=== PATIENT | male | born 1975 | race Hispanic/Latino ===

== ENCOUNTER 2022-03-07 12:35 | Emergency (ER) | payer OTHER ==
[2022-03-07] MEDS ORDERED: ONDANSETRON 4 MG/2 ML VIAL ONE (12:47)
[2022-03-07] MEDS ORDERED: NA CHLORIDE 0.9% 1,000 ML ONE (12:47)
[2022-03-07 12:50] LABS: Absolute Lymphocytes (CBC) 1.3 K/uL (0.7-4.9); Hematocrit 49.8 % (39.6-49.0); Lymphocytes % 5.9 % (15.3-44.8); MPV 8.1 fL (7.6-11.3); RBC Red Blood Cell Count 5.77 M/uL (4.33-5.43)
[2022-03-07] MEDS ORDERED: DIPHENHYDRAMINE 50 MG/ML VIAL ONE (12:52)
[2022-03-07 13:06] LABS: Albumin 4.3 g/dL (3.4-5.0); Bilirubin Total 0.8 mg/dL (0.2-1.0); Potassium 3.7 mmol/L (3.5-5.1); Protein, Total 8.5 g/dL (6.4-8.2)
[2022-03-07 13:35] LABS: Blood Gas Oxyhemoglobin 81.4 % (94-97); Blood O2 Saturation 83.2 % (92-98.5)
[2022-03-07] MEDS ORDERED: Ringers Lactate 3,000 ML IV ONE (13:45)
[2022-03-07 14:03] LABS: Blood Morphology Comment NOT SEEN (NOT SEEN); Platelet Estimate ADEQ
[2022-03-07] MEDS ORDERED: INSULIN -REGULAR HUMAN 50 UNIT/0.5 ML ML ONE (14:52)
--- NOTE | 2022-03-07 15:05 | RAD REPORT ---
EXAM DESCRIPTION: CT - Soft Tissue Neck W/Contr CLINICAL HISTORY: Swallowed foreign body Neck pain, swelling COMPARISON: No comparisons TECHNIQUE All CT scans are performed using dose optimization technique as appropriate and may includ e automated exposure control or mA/KV adjustment according to patient size. FINDINGS: Nasopharyngeal tissues are normal in appearance. Fossa Rosenmller are normal. Parapharyngeal fat triangles are symmetric. Tongue base structures are normal. Epiglottis and aryepiglottic folds are normal. Piriform sinuses are well aerated. The vocal cords are normal in appearance. Salivary glands are normal in appearance. Upper lung gonzalez are clear. Included intracranial contents are unremarkable. IMPRESSION: No acute abnormality is seen.
[2022-03-07 18:12] LABS: Potassium 3.9 mmol/L (3.5-5.1)
--- NOTE | 2022-03-07 19:02 | ER ---
Nurse's Notes [facility] Name: Estrada Sanchez Age: 46 yrs Sex: Male : 1975 Arrival Date: 03/07/2022 Time: 12:36 Bed 3 Private MD: Diagnosis: Hyperglycemia, unspecified;Vomiting Presentation: 03/07 12:38 Chief complaint: Patient states: vomiting began this morning; pt states 'feels like vg1 something is stuck in my throat and Im having trouble breathing". Coronavirus screen: Vaccine status: Patient reports receiving the 2nd dose of the covid vaccine. Client denies travel out of the [place] in the last 14 days. Ebola Screen: Patient denies exposure to infectious person. Patient denies travel to an Ebola-affected area in the 21 days before illness onset. Initial Sepsis Screen: Does the patient meet any 2 criteria? RR > 20 per min. Does the patient have a suspected source of infection? No. Patient's initial sepsis screen is negative. Risk Assessment: Do you want to hurt yourself or someone else? Patient reports no desire to harm self or others. Onset of symptoms was March 07, 2022. 12:38 Method Of Arrival: Ambulatory vg1 12:38 Acuity: NIMA 3 vg1 Triage Assessment: 12:40 General: Appears uncomfortable, Behavior is cooperative, anxious. Pain: Complains of vg1 pain in throat. EENT: Throat is reddened. Respiratory: Airway is patent Respiratory effort is even, unlabored, Respiratory pattern is tachypnea. Historical: - Allergies: 12:40 No Known Allergies; vg1 - Home Meds: 12:40 Metformin Oral [Active]; vg1 - PMHx: 12:40 Diabetes mellitus; vg1 - PSHx: 12:40 None; vg1 - Immunization history:: Client reports receiving the 2nd dose of the Covid vaccine. - Social history:: Smoking status: Patient denies any tobacco usage or history of. Screenin:45 Abuse screen: Denies threats or abuse. Denies injuries from another. Nutritional bp screening: No deficits noted. Tuberculosis screening: No symptoms or risk factors identified. Fall Risk None identified. Assessment: 12:45 General: SEE TRIAGE NOTE. bp 13:45 Reassessment: Patient and/or family updated on plan of care and expected duration. Pain bp level reassessed. Patient states symptoms have improved. 14:56 Reassessment: Patient and/or family updated on plan of care and expected duration. Pain bp level reassessed. PT RETURNED FROM CT Patient states symptoms have improved. 16:00 Reassessment: No changes from previously documented assessment. Patient and/or family bp updated on plan of care and expected duration. Pain level reassessed. 16:57 Reassessment: IVF COMPLETION PENDING FOR REPEAT BMP Patient states symptoms have bp improved. 18:00 Reassessment: No changes from previously documented assessment. Patient and/or family bp updated on plan of care and expected duration. Pain level reassessed. REPEAT LABS DRAWN AND SENT. 19:06 Reassessment: PT D/C HOME AMBULATORY WITH FAMILY, DX WITH HYPERGLYCEMIA. bp Vital Signs: 12:38 BP 149 / 82; Pulse 120; Resp 24; Pulse Ox 97% on R/A; Weight 90.72 kg; Height 6 ft. 0 vg1 in. (182.88 cm); Pain 3/10; 13:45 BP 122 / 70; Pulse 111; Resp 16; Pulse Ox 97% ; bp 14:56 BP 138 / 67; Pulse 111; Resp 19; Pulse Ox 99% ; bp 16:00 BP 127 / 69; Pulse 105; Resp 17; Pulse Ox 98% ; bp 16:56 BP 136 / 78; Pulse 102; Resp 17; Pulse Ox 98% ; bp 18:00 BP 134 / 66; Pulse 102; Resp 16; Pulse Ox 97% ; bp 18:48 BP 142 / 73; Pulse 102; Resp 19; Pulse Ox 96% ; bp 12:38 Body Mass Index 27.12 (90.72 kg, 182.88 cm) vg1 ED Course: 12:36 Patient arrived in ED. eb 12:38 Yg Carmen PA is PHCP. jmm 12:38 Jorge Allen MD is Attending Physician. jmm 12:40 Triage completed. vg1 12:40 Arm band placed on. vg1 12:45 Patient has correct armband on for positive identification. Bed in low position. Call bp light in reach. Side rails up X2. 12:45 Inserted saline lock: 20 gauge in right antecubital area, using aseptic technique. bp Blood collected. 12:48 Matheus Dillard, FRANCISCO JAVIER is Primary Nurse. bp 12:52 Notified Nurse Practitioner and/or Physician Y[facility] [employer] Room Worker of a critical lab result(s), WBC ll1 22.1. 14:39 Soft Tissue Neck W/Contr CT In Process Unspecified. EDMS 18:46 No provider procedures requiring assistance completed. IV discontinued, intact, bp bleeding controlled, No redness/swelling at site. Pressure dressing applied. Administered Medications: 12:45 Drug: NS 0.9% 1000 ml Route: IV; Rate: 1 bolus; Site: right antecubital; bp 13:44 Follow up: IV Status: Completed infusion; IV Intake: 1000ml bp 12:45 Drug: Zofran (Ondansetron) 4 mg Route: IVP; Site: right antecubital; bp 13:15 Follow up: Response: No adverse reaction bp 12:45 Drug: diphenhydrAMINE 12.5 mg Route: IVP; Site: right antecubital; bp 13:14 Follow up: Response: No adverse reaction bp 12:48 CANCELLED (MED UNAVAILABLE): Pepcid (famotidine) 20 mg IVP once; dilute with 10 mL 0.9% bp NaCl; give over 2 minutes 13:30 Drug: Lactated Ringers Solution 3000 ml Route: IV; Rate: 3000 bolus; Site: right bp antecubital; 19:07 Follow up: IV Status: Completed infusion; IV Intake: 3000ml bp 14:30 Drug: Insulin Regular Human 10 units {Co-Signature: jd3 (Miguel Angel Slaughter RN).} Route: bp IVP; Site: right antecubital; 18:46 Follow up: Response: No adverse reaction bp 18:46 Not Given (Patient Refused): Zofran (Ondansetron) 4 mg IVP once; over 2 minutes bp Medication: 12:45 VIS not applicable for this client. bp Intake: 13:44 IV: 1000ml; Total: 1000ml. bp 19:07 IV: 3000ml; Total: 4000ml. bp Outcome: 19:01 Discharge ordered by . roger 19:06 Discharged to home ambulatory, with friend. bp 19:06 Condition: stable 19:06 Discharge instructions given to patient, Instructed on discharge instructions, follow up and referral plans. medication usage, Demonstrated understanding of instructions, follow-up care, medications, Prescriptions given X 1. 19:07 Patient left the ED. bp Signatures: Dispatcher [employer] EDMS Yary Carmenel, PA PA jmm Gilma, Matheus, RN RN bp Iesha Estrada Victoria, RN RN vg1 Rodney Banks RN RN ll1 Miguel Angel Slaughter RN jd3
--- NOTE | 2022-03-07 19:02 | EDPHYS ---
Physician Documentation [facility] Name: Estrada Sanchez Age: 46 yrs Sex: Male : 1975 Arrival Date: 03/07/2022 Time: 12:36 Bed 3 Private MD: ED Physician Jorge Allen HPI: 03/07 12:38 This 46 yrs old Male presents to ER via Ambulatory with complaints of jmm vomiting, fb sensation. 12:38 The patient presents to the emergency department with nausea, vomiting. Onset: The jmm symptoms/episode began/occurred this morning. Possible causes: unknown. This is a 46 year old male with a history of dm that presents to the ED with complaints of vomiting beginning earlier this morning along with a fb sensation to his throat. Patient denies eating food today or placing a fb in his throat today. Denies abdominal pain. . Historical: - Allergies: 12:40 No Known Allergies; vg1 - Home Meds: 12:40 Metformin Oral [Active]; vg1 - PMHx: 12:40 Diabetes mellitus; vg1 - PSHx: 12:40 None; vg1 - Immunization history:: Client reports receiving the 2nd dose of the Covid vaccine. - Social history:: Smoking status: Patient denies any tobacco usage or history of. ROS: 12:38 Constitutional: Negative for fever, chills, and weight loss. jmm 12:38 Neck: Negative for injury, pain, and swelling, Cardiovascular: Negative for chest pain, palpitations, and edema, Respiratory: Negative for shortness of breath, cough, wheezing, and pleuritic chest pain. 12:38 ENT: Positive for sore throat. 12:38 Abdomen/GI: Positive for nausea and vomiting, Negative for diarrhea. 12:38 All other systems are negative. Exam: 12:38 Constitutional: This is a well developed, well nourished patient who is awake, alert, jmm and in no acute distress. Head/Face: atraumatic. Eyes: EOMI, no conjunctival erythema appreciated 12:38 Neck: Trachea midline, Supple Chest/axilla: Normal chest wall appearance and motion. Cardiovascular: Regular rate and rhythm. No edema appreciated Respiratory: Normal respirations, no respiratory distress appreciated 12:38 Back: Normal ROM Skin: General appearance color normal MS/ Extremity: Moves all extremities, no obvious deformities appreciated, no edema noted to the lower extremities Neuro: Awake and alert Psych: Behavior is normal, Mood is normal, Patient is cooperative and pleasant 12:38 ENT: Posterior pharynx: Airway: normal, no evidence of obstruction, erythema, that is mild. 12:38 Abdomen/GI: Inspection: abdomen appears normal, Bowel sounds: normal, Palpation: soft, nontender, in all quadrants. Vital Signs: 12:38 BP 149 / 82; Pulse 120; Resp 24; Pulse Ox 97% on R/A; Weight 90.72 kg; Height 6 ft. 0 vg1 in. (182.88 cm); Pain 3/10; 13:45 BP 122 / 70; Pulse 111; Resp 16; Pulse Ox 97% ; bp 14:56 BP 138 / 67; Pulse 111; Resp 19; Pulse Ox 99% ; bp 16:00 BP 127 / 69; Pulse 105; Resp 17; Pulse Ox 98% ; bp 16:56 BP 136 / 78; Pulse 102; Resp 17; Pulse Ox 98% ; bp 18:00 BP 134 / 66; Pulse 102; Resp 16; Pulse Ox 97% ; bp 18:48 BP 142 / 73; Pulse 102; Resp 19; Pulse Ox 96% ; bp 12:38 Body Mass Index 27.12 (90.72 kg, 182.88 cm) vg1 MDM: 12:38 Patient medically screened. [facility] 19:00 Data reviewed: vital signs, nurses notes. Counseling: I had a detailed discussion with [facility] the patient and/or guardian regarding: the historical points, exam findings, and any diagnostic results supporting the discharge/admit diagnosis, lab results, radiology results, the need for further work-up and treatment in the hospital. Refusal of service: The patient/guardian displays adequate decision making capability and despite a detailed discussion of alternatives, benefits, risks, and consequences refuses: Admission to the hospital for further work-up and treatment. 03/07 12:39 Order name: CBC with Diff; Complete Time: 14:04 [facility] 03/07 12:39 Order name: CMP; Complete Time: 13:09 [facility] 03/07 12:39 Order name: Lipase; Complete Time: 13:09 [facility] 03/07 13:09 Order name: ABG; Complete Time: 14:33 [facility] 03/07 14:03 Order name: Manual Differential; Complete Time: 14:04 [facility] 03/07 14:17 Order name: Soft Tissue Neck W/Contr CT; Complete Time: 15:07 [facility] 03/07 17:24 Order name: BMP; Complete Time: 18:15 [facility] 03/07 12:39 Order name: IV Saline Lock; Complete Time: 12:48 [facility] 03/07 12:39 Order name: Labs collected and sent; Complete Time: 12:48 [facility] Administered Medications: 12:45 Drug: NS 0.9% 1000 ml Route: IV; Rate: 1 bolus; Site: right antecubital; bp 13:44 Follow up: IV Status: Completed infusion; IV Intake: 1000ml bp 12:45 Drug: Zofran (Ondansetron) 4 mg Route: IVP; Site: right antecubital; bp 13:15 Follow up: Response: No adverse reaction bp 12:45 Drug: diphenhydrAMINE 12.5 mg Route: IVP; Site: right antecubital; bp 13:14 Follow up: Response: No adverse reaction bp 12:48 CANCELLED (MED UNAVAILABLE): Pepcid (famotidine) 20 mg IVP once; dilute with 10 mL 0.9% bp NaCl; give over 2 minutes 13:30 Drug: Lactated Ringers Solution 3000 ml Route: IV; Rate: 3000 bolus; Site: right bp antecubital; 19:07 Follow up: IV Status: Completed infusion; IV Intake: 3000ml bp 14:30 Drug: Insulin Regular Human 10 units {Co-Signature: jd3 (Miguel Angel Slaughter RN).} Route: bp IVP; Site: right antecubital; 18:46 Follow up: Response: No adverse reaction bp 18:46 Not Given (Patient Refused): Zofran (Ondansetron) 4 mg IVP once; over 2 minutes bp Disposition Summary: 03/07/22 19:01 Discharge Ordered Location: Home rochelle Condition: Stable roger Diagnosis - Hyperglycemia, unspecified jmm - Vomiting jm Followup: rochelle - With: Private Physician - When: 1 - 2 days - Reason: Recheck today's complaints, Continuance of care, Re-evaluation by your physician Discharge Instructions: - Discharge Summary Sheet roger - Hyperglycemia jmm - Vomiting, Adult jm Forms: - Medication Reconciliation Form rochelle - Thank You Letter roger - Antibiotic Education jmm - Prescription Opioid Use jmm Prescriptions: - ondansetron 4 mg Oral tablet,disintegrating - take 1 tablet by ORAL route every 4-6 hours; 20 tablet; Refills: 0, Product [facility] Selection Permitted Signatures: Dispatcher [employer] EDYg Anglin PA PA jmm Peltier, Brian, RN RN bp Lupe Enriquez RN RN vg1 Miguel Angel Slaughter RN jd3 Corrections: (The following items were deleted from the chart) 12:48 12:39 Pepcid (famotidine) 20 mg IVP once; dilute with 10 mL 0.9% NaCl; give over 2 bp minutes ordered. [facility]
[2022-03-07 19:40] VITALS: BP 142/73; O2SAT 96
== END 2022-03-07 19:07 | disposition home or self-care (01) ==
LOC: ER 12:35
DX: E11.65 Type 2 diabetes mellitus with hyperglycemia (principal)
CPT/HCPCS: 96361; 85025; 80048; 36415; 83690; 80053; 70491; 82805; 96375; 96374; 99284; Q9967; J1200; J1815; J7120; J7030; J2405